=== PATIENT | female | born 2000 | race Caucasian/White ===

== ENCOUNTER 2021-04-13 08:33 | Emergency (ER) | payer MEDICAID ==
[~2021-04-13] VITALS: Ht 167.6 cm; Wt 68.0 kg
--- NOTE | 2021-04-13 08:44 | NUR ---
to er bed 9
[2021-04-13 08:47] VITALS: BP 122/81
--- NOTE | 2021-04-13 08:58 | NUR ---
20 y/o female presents to ed with c/o right hip abscess that started 6 days ago. pt was seen by dermotologist and was informed to do warm compresses. pt states since warm compress, abscess has opened and started draining, upon assessment, pt has small open wound with thick white/yellow discharge. no bleeding or edema around site. denies nausea, vomiting, diarrhea. skin is pink/warm/dry. a&o x4 with even and steady gait. lungs clear bl, heart rate even and regular. pt denies any fever, cp, sob, or cough at this time. pt states pain is 4/10 at this time. vss. patient positioned for comfort. hob elevated. bed down. ermd made aware of pt. pmh: mona, Postural orthostatic tachycardia syndrome (POTS), fibromyalgia allergy: bee stings, APRI
[2021-04-13] MEDS ORDERED: SULFAMETH/TRIMETH DS 800/160MG 1 TAB PO ONE (09:40)
[2021-04-13] MEDS ORDERED: SULF-59 PO (09:51)
[2021-04-13 10:06] VITALS: BP 122/81
--- NOTE | 2021-04-13 10:06 | NUR ---
Patient discharged with v/s stable. Written and verbal after care instructions given and explained. Patient alert, oriented and verbalized understanding of instructions. Ambulatory with steady gait. All questions addressed prior to discharge. ID band removed. Patient advised to follow up with PMD. Rx of sulfamethoxazole (sent) given. Patient educated on indication of medication including possible reaction and side effects. Opportunity to ask questions provided and answered.
== END 2021-04-13 10:06 | disposition home or self-care (01) ==
LOC: MED 08:33
DX: L02.415 Cutaneous abscess of right lower limb (principal); L03.115 Cellulitis of right lower limb; E06.3 Autoimmune thyroiditis; Z79.899 Other long term (current) drug therapy; Z88.8 Allergy status to other drugs, medicaments and biological substances
CPT/HCPCS: 99284

== ENCOUNTER 2021-12-18 15:01 | Emergency (ER) | payer MEDICAID ==
[~2021-12-18] VITALS: Ht 167.6 cm; Wt 71.7 kg
[~2021-12-18 15:01] MED LIST: SULF-59 PO
[2021-12-18 15:15] VITALS: BP 113/72
--- NOTE | 2021-12-18 15:27 | NUR ---
21/F WALKED IN C/O RIGHT FOOT PAIN ONSET 5 DAYS. PT DENIES ANY FALL OR INJURY BUT STATES PT IS FREQUENTLY BOARD DIVING. AAO4, AMBULATORY, ROM INTACT, NO SWELLING OR DEFORMITY NOTED. pmh: POTS, fibromyalgia, hashimotos, sleep apnea allergy: bee sting, desogestrel, ethinyl, estradiol
--- NOTE | 2021-12-18 15:39 | NUR ---
XR AT BEDSIDE
--- NOTE | 2021-12-18 16:31 | NUR ---
Patient discharged with v/s stable. Written and verbal after care instructions given and explained. Patient verbalized understanding. Ambulatory with steady gait. All questions addressed prior to discharge. Advised to follow up with PMD.
--- NOTE | 2021-12-18 16:31 | NUR ---
ORTHO SHOE PLACED TO R FOOT. + CMS
== END 2021-12-18 16:31 | disposition home or self-care (01) ==
LOC: MED 15:01
DX: M79.671 Pain in right foot (principal); Z79.899 Other long term (current) drug therapy; Z88.8 Allergy status to other drugs, medicaments and biological substances
CPT/HCPCS: 73630; 99283

== ENCOUNTER 2022-05-26 18:42 | Emergency (ER) | payer MEDICAID ==
[~2022-05-26] VITALS: Ht 165.1 cm; Wt 70.3 kg
[2022-05-26 18:44] VITALS: BP 132/93
--- NOTE | 2022-05-26 19:47 | NUR ---
PT AMBULATED TO BED 1
--- NOTE | 2022-05-26 20:00 | NUR ---
21 Y/O f PRESENTS WITH COLD SYMPTOMS X12 DAYS. PT STATED THROAT HAS BEEN INFLAMMED AND PAINFUL UPON SWALLOWING. PT STATED SHE FEELS FATIGUED AND WEAK WITH DIZZINESS. PT STATED SHE TOOK TYLENOL WITH SOME RELIEF AND ADVIL WITH NO RELIEF. PT STATED DIARRHEA X2DAYS WITH GREENISH COLOR. PT STATED HER MENSTRUAL CYCLE IS IRREGULAR AND HASNT HAD ONE SINCE FEB. PT IS A&OX4, SKIN INTACT. PMH- GI ISSUES. ALLERGIES- SEE CHART
[2022-05-26] MEDS ORDERED: AMOX-1230 PO (20:09)
[2022-05-26] MEDS ORDERED: DEXAMETHASONE 10 MG/ML VIAL PO ONE (20:10)
[2022-05-26 21:46] VITALS: BP 122/72
--- NOTE | 2022-05-26 21:54 | NUR ---
Patient discharged with v/s stable. Written and verbal after care instructions given and explained. Patient alert, oriented and verbalized understanding of instructions. Ambulatory with steady gait. All questions addressed prior to discharge. ID band removed. Patient advised to follow up with PMD. Rx of aMOXICILLIN/POTASSIUM CLAV given. Opportunity to ask questions provided and answered.
== END 2022-05-26 21:54 | disposition home or self-care (01) ==
LOC: MED 18:42
DX: J03.90 Acute tonsillitis, unspecified (principal); Z79.2 Long term (current) use of antibiotics; Z88.8 Allergy status to other drugs, medicaments and biological substances; Z91.030 Bee allergy status
CPT/HCPCS: 99283; J1100